=== PATIENT | male | born 1945 | race Hispanic/Latino ===

== ENCOUNTER 2019-02-19 12:47 | Emergency (ER) | payer OTHER ==
[2019-02-19] MEDS ORDERED: ACETAMINOPHEN EXTRA STRENGTH 500 MG TABLET ONE (13:13)
[2019-02-19] MEDS ORDERED: OCTYL 2-CYANOACRYLATE 1 EACH TP ONE (13:50)
== END 2019-02-19 14:47 | disposition home or self-care (01) ==
LOC: EDH 12:47
DX: S51.011A Laceration without foreign body of right elbow, initial encounter (principal); S70.01XA Contusion of right hip, initial encounter; S50.811A Abrasion of right forearm, initial encounter; I10 Essential (primary) hypertension; Z87.891 Personal history of nicotine dependence; W11.XXXA Fall on and from ladder, initial encounter; Y93.89 Activity, other specified; Y92.89 Other specified places as the place of occurrence of the external cause; Y99.8 Other external cause status
CPT/HCPCS: 12032; 73070; 73521

== ENCOUNTER 2021-06-29 07:45 | Emergency (ER) | payer OTHER ==
[~2021-06-29] VITALS: Ht 162.6 cm; Wt 71.7 kg
[~2021-06-29 07:45] MED LIST: ATOR40TA69 PO; CHOL500050 PO; ENAL10TA18 PO; MULT-1192 PO; PROP10TA10 PO; SERT-440 PO; TAMS-1 PO
[2021-06-29] MEDS ORDERED: HYDROCODONE/ACETAMINOPHEN 5/325 MG TAB PO ONE (08:30)
[2021-06-29] MEDS ORDERED: KETOROLAC 15MG/ML VIAL (15MG/ML) IM ONE (08:30)
[2021-06-29] MEDS ORDERED: ACET-2079 PO (10:48)
[2021-06-29] MEDS ORDERED: IBUP-2070 PO (10:48)
[2021-06-29 11:09] VITALS: BP 154/83
== END 2021-06-29 11:12 | disposition home or self-care (01) ==
LOC: EDH 07:45
DX: S22.32XA Fracture of one rib, left side, initial encounter for closed fracture (principal); I10 Essential (primary) hypertension; G20 Parkinson's disease; Z79.899 Other long term (current) drug therapy; W06.XXXA Fall from bed, initial encounter; Y93.89 Activity, other specified; Y92.89 Other specified places as the place of occurrence of the external cause; Y99.8 Other external cause status
CPT/HCPCS: 71101; 71250; 74176; 96372; 99284; J1885